=== PATIENT | male | born 1935 | race Caucasian/White ===

== ENCOUNTER 2019-07-04 07:58 | Inpatient (IN) ==
[2019-07-04] MEDS ORDERED: IOPAMIDOL 100 ML BOTTLE IV ONE (07:59)
[2019-07-04 08:19] LABS: POC Blood Urea Nitrogen 33 mg/dl (8-23); POC CO2 26 mmol/L (22-30); POC Calcium, Ionized 1.17 mmol/L (1.16-1.32); POC Chloride 106 mmol/L (96-108); POC Creatinine 1.4 mg/dl (0.7-1.2); POC Glucose, Random 125 mg/dL (70-105); POC Potassium 4.6 mmol/L (3.3-5.1); POC Sodium 140 mmol/L (133-145)
--- NOTE | 2019-07-04 08:20 | Emergency Department Note ---
Altered Mental Status HPI - General Chief Complaint: Altered Mental Status Stated Complaint: altered LOC Time Seen by Provider: 07/04/19 08:01 Source: patient Mode of arrival: ambulatory Limitations: no limitations - History of Present Illness HPI Narrative: 83-year-old male last seen normal 9 PM last night. Woke up this morning was confused. Went into the coat closet and close the door behind him. He was acting strange talking about having to repair a table in the kitchen. He is actually been falling more these last 9 months but no recent illness. No fever shortness of breath cough congestion. 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 He is saying some things are gibberish he is perseverating on certain words he is unable to follow commands-concerned about the possibility of a stroke - Related Data Home Medications Medication Instructions Recorded Confirmed methotrexate sodium 7.5 mg tablet 5 mg PO QWEEK tab 04/02/19 06/18/19 warfarin 5 mg tablet See Rx Instructions PO .COMPLEX 04/02/19 06/18/19 Allergies Allergy/AdvReac Type Severity Reaction Status Date / Time hydrochlorothiazide Allergy Unknown Unknown Verified 07/04/19 08:03 [From Hyzaar] losartan [From Hyzaar] Allergy Unknown Unknown Verified 07/04/19 08:03 Review of Systems All systems ED: reviewed and negative except as stated. Past Medical History - Past Medical History Attestation: Yes: The following information was validated with the patient. [facility] Narrative: Family History (Last Reviewed 04/02/19 @ 08:25 by Marino Smith MD, FAAFP) Mother Stroke Brother Lung cancer Diabetes Sister Diabetes Arthritis Hypertension Stroke Daughter Arthritis Migraine Father Arthritis Other Cancer Medical History (Last Updated 06/18/19 @ 22:12 by Олег Finnegan DO) Anticoagulated on warfarin (Chronic) Chronic renal insufficiency (Chronic) CVA (cerebral vascular accident) (Chronic) CAD (coronary artery disease) (Chronic) Diastolic heart failure (Chronic) Chronic renal disease, stage III (Chronic) Atrial fibrillation (Chronic ~2015) Mitral regurgitation (Chronic) Arthritis (Chronic ~1954) Acute prerenal failure (Resolved) Other acute reactions to stress (Chronic) Anxiety state, unspecified (Chronic) Intermittent vertigo (Chronic) BPH (benign prostatic hyperplasia) (Chronic) Hypertension, essential (Chronic ~1956) Low back pain (Chronic) Anemia (Chronic ~01/2018) History of tobacco use (Chronic) Urinary retention (Chronic) Cancer (Chronic ~01/2018) Anorexia (Resolved) Ganglion cyst (Resolved) Lethargy (Resolved) Petechiae or ecchymoses (Resolved) Pneumonia (Resolved) Unsteady gait (Resolved) Actinic keratosis (Inactive) Benign neoplasm of skin of trunk (Inactive) Dermatitis, seborrheic (Inactive) Hammertoe (Inactive) Hyperkeratosis (Inactive) Lentigo (Inactive) Metatarsalgia (Inactive) Myalgia (Inactive) Plantar flexed metatarsal (Inactive) Seborrheic keratosis (Inactive) Past Surgical History (Last Reviewed 04/02/19 @ 08:25 by Marino Smith MD, [facility]) H/O arthroscopic knee surgery (Chronic) H/O bilateral hip replacements (Chronic) H/O shoulder replacement (Chronic) History of ankle surgery (Chronic) History of carpal tunnel release (Chronic) History of colonoscopy (Chronic ~12/2017) History of coronary artery bypass graft x 3 (Chronic) History of herniorrhaphy (Chronic) History of left knee replacement (Chronic) History of surgery (Chronic) Hx of appendectomy (Chronic) Status post right foot surgery (Chronic) Medical history: Reports: atrial fibrillation, CAD (coronary artery disease), hypertension - Social History smoking status: Former smoker Alcohol use: Reports: None Drug use: Reports: none Physical Exam Thin male no acute distress resting comfortably. Normocephalic atraumatic. Conjunctive are clear sclerae white nonicteric. No nasal congestion or dischar ge. Oropharynx pink and moist. Tongue is midline. Neck is supple without lymphadenopathy thyromegaly or carotid bruit. Heart is regular rate and rhythm no murmur appreciated. Lungs are clear to auscultation bilaterally without wheezes rales rhonchi or respiratory distress. Abdomen is soft nontender nondistended. No pedal edema. He is alert and oriented to person but he cannot tell me that he is in the hospital. He has little difficulty saying his 's name but then he gets it on the second or third try. He cannot tell me what day it is today or the date but he does know that it is June. Cranial nerves II through XII are grossly intact. He does have some difficulty with finger-nose and rapid alternating movements particularly on the left side. Significant arthritic changes to his hands. Hip strength seems to be equal bilaterally and he can lift his legs against gravity. 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 Limitations: no limitations Course Vital Signs Pulse Rate 75 07/04/19 07:58 Respiratory Rate 18 07/04/19 07:58 Blood Pressure 166/110 07/04/19 07:58 Pulse Oximetry (%) 97 07/04/19 07:58 Pulse Rate 75 07/04/19 07:58 Respiratory Rate 18 07/04/19 07:58 Blood Pressure 166/110 07/04/19 07:58 Pulse Oximetry (%) 97 07/04/19 07:58 Altered Mental Status - Lab Data Lab results reviewed: Yes I reviewed the patient's lab results. Result diagrams: 07/04/19 08:14 07/04/19 08:14 Lab Results 07/04/19 Range/Units 08:14 POC Hct 41.0 (41.0-55.0) % POC Sodium 140 (133-145) mmol/L POC Potassium 4.6 (3.3-5.1) mmol/L POC Chloride 106 (96-108) mmol/L POC Total CO2 26 (22-30) mmol/L POC BUN 33 H (8-23) mg/dl POC Creatinine 1.4 H (0.7-1.2) mg/dl POC Glucose 125 H (70-105) mg/dL POC WB Ioniz Calcium 1.17 (1.16-1.32) mmol/L - Radiology Data Radiology results reviewed: Yes I reviewed the patient's radiology results. CT scan of the head with negative for acute stroke but old encephalomalacia is noted - EKG Data EKG attestation: Yes I reviewed and interpreted this EKG., Yes There are no EKG findings of acute coronary syndrome, Yes This EKG will be read by time study statistician EKG results narrative: EKG shows atrial fibrillation with a rate of 75. When compared to previous from November 2018 it does look like ST depression is more pronounced in the anterior le ads and he has a new right bundle branch block or partial in V1 and V2. Disposition Pt seen by RENAL CASE MANAGER/PA only: No Summary: Concern for CVA but he is on Coumadin. Laboratory and CT scan are ordered. EKG is unrevealing with atrial fibrillation. He does have significant deficit with some confusion and orientation deficits. Work-up ordered NIH in progress. Hydralazine ordered for markedly elevated blood pressure Initial CT scan was negative for acute stroke. CTA ordered of head and neck Patient will be handed off to Dr. Finnegan at shift change Disposition: Still a Patient Condition: Serious Referrals: Marino Smith MD, FAAFP [Primary Care Provider] -
--- NOTE | 2019-07-04 08:27 | Cat Scan Report ---
CLINICAL INFORMATION: Fall. Patient is anticoagulated COMPARISON: Previous CT scan dated 03/09/2019 TECHNIQUE: Axial noncontrast-enhanced images through the brain. Sagittally and coronally reformatted images. FINDINGS: No acute intracranial hemorrhage. There is no subdural hematoma. No subarachnoid hemorrhage. Basilar cisterns are negative. No intra-axial hemorrhage. No acute intra-axial attenuation abnormality or localized mass effect. There is right parietal encephalomalacia, unchanged. White matter abnormality consistent with small vessel ischemic change in this 83-year-old patient. There is cerebral atrophy. There is left cerebellar encephalomalacia consistent with old infarction. No acute cerebellar or brainstem abnormality. No calvarial fracture. Temporal bones are negative IMPRESSION: 1. No acute intracranial hemorrhage. 2. Right posterior parietal and left cerebellar encephalomalacia consistent with old infarction 3. No acute abnormality. No interval change since 03/09/2019 The exam was performed using radiation dose optimization techniques including, but not limited to, automated exposure control, adjustment of the mA and/or kV according to patient size and use of iterative reconstruction technique. Interpreted and Authenticated by: Ulises Mike 07/04/19
[2019-07-04] MEDS ORDERED: hydrALAZINE 20 MG/ML VIAL IV ONE (08:35)
[2019-07-04 08:43] LABS: POC INR 1.9 (0.9-1.2); POC Pro Time 21.7 sec (11.9-14.5)
[2019-07-04 08:55] LABS: Basophils # (Auto) 0 K/mcL (0.0-0.3); Basophils % (Auto) 0.1 % (0.0-2.0); Eosinophils # (Auto) 0 K/mcL (0.0-0.7); Eosinophils % (Auto) 0.2 % (0.0-7.0); Granulocytes % (Auto) 80.5 % (38.0-78.0); Hematocrit 40.9 % (41.0-55.0); Hemoglobin 13.6 g/dL (13.5-16.5); Lymphocytes # (Auto) 0.7 K/mcL (1.5-4.8); Lymphocytes % (Auto) 12.5 % (15.5-49.0); Mean Cell Volume 90.4 fL (80.0-100.0); Mean Corpuscular HGB Conc 33.2 g/dL (31.0-36.0); Mean Platelet Volume 9.9 fL (7.4-10.4); Monocytes # (Auto) 0.4 K/mcL (0.1-0.9); Monocytes % (Auto) 6.7 % (1.0-12.0); Platelet Count 139 K/mcL (140-440); RBC 4.52 M/mcL (4.50-5.90); Red Cell Distribution Width 15.2 % (11.5-14.5); WBC 5.3 K/mcL (4.5-11.0)
--- NOTE | 2019-07-04 09:20 | Cat Scan Report ---
CLINICAL INFORMATION: Code stroke TECHNIQUE: Axial images through the chest, neck, head. Sagittal and coronal reformatted images. CPR reformatted images. 90 mL contrast material injected COMPARISON: Noncontrast enhanced brain CT scan dated 07/04/2019 FINDINGS: There is extensive atherosclerotic calcification. There is atherosclerotic calcification at the origins of the left subclavian artery, left common carotid artery, innominate artery. No hemodynamically significant stenosis. There is calcification at the origin of both vertebral arteries. Stenosis is possible. Vertebral arteries are patent. There is calcified plaque in the distal common carotid artery and proximal internal carotid artery bilaterally. There is no ulcerated plaque. No hemodynamically significant stenosis. Cervical internal carotid arteries are negative. No stenosis. No dissection or evidence for fibromuscular dysplasia. Petrous portions of both internal carotid arteries are patent. There is extensive calcification of the cavernous and supraclinoid segments of both internal carotid arteries. Stenosis of the cavernous segments of the internal carotid arteries is possible although not definite. Supraclinoid segments are negative. No stenosis. M1 segments of the middle cerebral arteries and A1 segments of the anterior cerebral arteries are negative. There is no stenosis or occlusion. Detectable occluded branch. Cervical vertebral arteries are patent without obstruction or stenosis. Intracranial vertebral arteries are normal. Basilar artery is negative. No stenosis or occlusion. T1 segments and posterior cerebral arteries are negative. No intracranial aneurysm or arteriovenous malformation. No detectable intracranial branch occlusion. Dural sinuses are patent Lung apices are negative. No parenchymal mass. No solid or cystic soft tissue mass within the neck. There is multilevel degenerative disc disease within the cervical spine IMPRESSION: 1. Extensive calcified atherosclerotic plaque. 2. Stenoses within the cavernous segments of the internal carotid arteries are possible. There is no occlusion. Normal opacification of the supraclinoid segments of the internal carotid arteries bilaterally 3. Anterior and middle cerebral arteries are negative. No stenosis or occlusion. 4. Intracranial vertebral arteries, basilar artery, posterior cerebral arteries are negative. Interpreted and Authenticated by: Ulises Mike 07/04/19
[2019-07-04 10:29] LABS: ALT/SGPT 18 U/l (0-40); AST/SGOT 29 U/l (0-37); Albumin 4.1 gm/dL (3.2-5.2); Albumin/Globulin Ratio 1.2 (1.0-2.3); Alkaline Phosphatase 58 U/L (39-117); Bilirubin,Total 0.7 mg/dL (0.0-1.0); Blood Urea Nitrogen 24 mg/dl (8-23); Calcium 9.6 mg/dl (8.6-10.4); Carbon Dioxide 21 mmol/L (22-30); Chloride 100 mmol/L (96-108); Globulin 3.4 gm/dL (2.2-3.7); Glomerular Filtration Rate 50; Glucose 101 mg/dL (70-105)
--- NOTE | 2019-07-04 11:06 | Internal Med History&Physical ---
Medical - H&P: HPI Patient information: Note initiated : 07/04/19 at 10:56 am Service Date, if different from initiated Date: [] Patient: Luis Alfredo Contreras 83 y/o M admitted on for Altered LOC. Chief Complaint: [] Chief complaint: Slurred speech/right-sided weakness History of present illness: Mr. Contreras is a 83 year old right-handed M who presents to the ER after he was found by his family this morning confused unable to express himself and wobbly. Despite concerning symptoms patient refused to go to the ER however he fell between his bed and the dresser wedged in but fortunate enough not to sustain significant injuries. He was thereafter brought to the ER and code stroke was initiated. Dr. Hale neurologist was consulted after CT angiogram head neck/CT head was performed. Initial NIH score 7. Stroke neurology recommended continuing Coumadin/aspirin. Patient is sub-therapeutic at 1.9. He denies associated vision loss/seizure but endorses to headache that started this morning throbbing in nature. He denies tearing neck pain or chest palpitation or shortness of breath. He is recovering from a recent URI. He denies changes in medications or taking NSAIDs Following initial treatment hospitalist service consulted for evaluation and admission At the time evaluation patient is accompanied with his daughter and . He is able to answer some of the questions. Most of history was obtained from review of medical records/ER physician and patient's . He endorses to history as above. He denies chest pain, fever, diarrhea, dysuria, weight loss. On his normal baseline he is fairly functional driving and able to fix meals and lives with his fairly independently. He has not had prior stroke or cardiac surgeries. Review of systems 10 point review system was performed and is negative for ones cussed above Medical - H&P: PMH Medical history: Arthritis (Chronic ~1955) Chronic renal disease, stage III (Chronic) Left wrist pain (Chronic) Lentigo (Chronic) Benign Benign neoplasm of skin of trunk (Chronic) Seborrheic keratosis (Chronic) Dermatitis, seborrheic (Chronic) Hemangioma of skin (Chronic) Ganglion cyst (Chronic) Left wrist Other acute reactions to stress (Chronic) Anxiety state, unspecified (Chronic) CAD (coronary artery disease) (Chronic) Actinic keratosis (Chronic) Intermittent vertigo (Chronic) Lethargy (Chronic) BPH (benign prostatic hyperplasia) (Chronic) Hypertension, essential (Chronic ~195) Chronic renal insufficiency (Chronic) Atrial fibrillation (Chronic ~2015) Anticoagulated on warfarin (Chronic) Low back pain (Chronic) Anemia (Chronic ~01/2018) Myalgia (Chronic) CVA (cerebral vascular accident) (Chronic) Metatarsalgia (Chronic) Plantar flexed metatarsal (Chronic) Hammertoe (Chronic) Hyperkeratosis (Chronic) History of tobacco use (Chronic) Retention of urine (Chronic) Acute bronchitis (Acute) Cancer (Chronic ~01/2018) T-cell Surgical History H/O arthroscopic knee surgery (Chronic) x3 H/O bilateral hip replacements (Chronic) H/O shoulder replacement (Chronic) Right shoulder History of ankle surgery (Chronic) right History of carpal tunnel release (Chronic) History of colonoscopy (Chronic ~12/2017) History of coronary artery bypass graft x 3 (Chronic) History of herniorrhaphy (Chronic) x2 History of left knee replacement (Chronic) History of surgery (Chronic) 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 Hx of appendectomy (Chronic) Status post right foot surgery (Chronic) Family History Mother Stroke Brother Lung cancer Diabetes Sister Diabetes Arthritis Hypertension Stroke Daughter Arthritis Migraine Father Arthritis Other Cancer Social History marital status: occupational status: retired physical activity: none smoking status: Former smoker alcohol intake frequency: does not drink substance use type: does not use Medical - H&P: Meds Home Medications Medication Instructions Recorded Confirmed Type methotrexate sodium 7.5 mg tablet 5 mg PO QWEEK tab 04/02/19 07/04/19 History warfarin 5 mg tablet See Rx Instructions PO .COMPLEX 04/02/19 07/04/19 History Allergies Allergy/AdvReac Type Severity Reaction Status Date / Time hydrochlorothiazide Allergy Unknown Unknown Verified 07/04/19 08:03 [From Hyzaar] losartan [From Hyzaar] Allergy Unknown Unknown Verified 07/04/19 08:03 Medical - H&P: Exam - Constitutional Vitals: Temp Pulse Resp BP Pulse Ox 99.7 F H 80 20 177/75 98 07/04/19 10:01 07/04/19 10:48 07/04/19 10:48 07/04/19 10:48 07/04/19 10:48 General appearance: no acute distress Exam: Alert and respond to commands Oriented to time and person, he knew is in [address] but thinks he is at [facility] Head normocephalic Oral cavity dry Monocular vision with 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 No ear nose discharge No facial asymmetry Neck no lymphadenopathy or bruit S1-S2 regular rhythm ESM grade 1 Diminished breath sounds bases Abdomen soft nontender nondistended bruit noted epigastric area Lower extremity no sinus clubbing no joint swelling Skin no suspicious lesion Psych alert cooperative Neuro-symmetrical strength sensation upper and lower extremity No cranial nerve deficit Minimal expressive aphasia Symmetrical tone Medical - H&P: Reslt - Labs CBC & Chem 7: 07/04/19 08:14 07/04/19 09:36 Labs: Short CBC 07/04/19 Range/Units 08:14 WBC 5.3 (4.5-11.0) K/mcL Hgb 13.6 (13.5-16.5) g/dL Hct 40.9 L (41.0-55.0) % Plt Count 139 L (140-440) K/mcL BMP 07/04/19 07/04/19 08:14 09:36 Sodium TNP 135 Potassium TNP 5.0 Chloride TNP 100 Carbon Dioxide TNP 21 L BUN TNP 24 H Creatinine TNP 1.3 H Glucose TNP 101 Calcium TNP 9.6 Cardiac Enzymes 07/04/19 07/04/19 Range/Units 08:14 09:36 Troponin T TNP < 0.01 Liver Function 07/04/19 07/04/19 Range/Units 08:14 09:36 Total Bilirubin TNP 0.7 AST TNP 29 ALT TNP 18 Alkaline Phosphatase TNP 58 Albumin TNP 4.1 Medical - H&P: A/P (1) Acute cerebrovascular accident (CVA) Current visit: Yes Status: Acute * Acute ischemic CVA likely involving left hemisphere MCA territory with expressive aphasia-underlying A. fib but anticoagulated with INR 1.9. Negative CT angiogram head neck. Await brain MRI. Echo with bubble study pratik max. Continue anticoagulation on Coumadin/aspirin 81 as per stroke neurologist Dr. Hale's recommendations. Continue permissive hypertension but maintain systolics around 170-180. Use nicardipine as needed * Atrial fibrillation rate controlled. * Anticoagulation on Coumadin * Full code Plan * Inpatient admission, Anticipate minimum 2 midnight hospitalization * Stroke management per protocol. * Prior medical condition management home meds * Optimize blood pressure around 170-180 * Continue Coumadin/aspirin as per stroke neurologist * PT OT/aggressive post stroke rehab * Case management coordinate discharge plan
--- NOTE | 2019-07-04 11:19 | Emergency Department Note ---
Altered Mental Status HPI - General Chief Complaint: Altered Mental Status Stated Complaint: altered LOC Time Seen by Provider: 07/04/19 08:01 Source: patient Mode of arrival: ambulatory Limitations: no limitations - History of Present Illness HPI Narrative: I am following up on this patient after change in shift. Family clarifies that at 6 AM is when he first got up and his conversation was very difficult to follow or track and at times totally not making much sense. He acted confused. He stumbled with walking and was wobbly. He even fell with a small laceration to his right elbow. reports that he was up during the night several times which is not unusual for him. However he seemed to bump into several things. He went to bed around 9 PM. This morning he seemed to be tearing things apart as if you were trying to fix or do something with him. He had some food and he started eating it with his fingers instead of with silverware which was very unusual for him. - Related Data Home Medications Medication Instructions Recorded Confirmed methotrexate sodium 7.5 mg tablet 5 mg PO QWEEK tab 04/02/19 06/18/19 warfarin 5 mg tablet See Rx Instructions PO .COMPLEX 04/02/19 06/18/19 Allergies Allergy/AdvReac Type Severity Reaction Status Date / Time hydrochlorothiazide Allergy Unknown Unknown Verified 07/04/19 08:03 [From Hyzaar] losartan [From Hyzaar] Allergy Unknown Unknown Verified 07/04/19 08:03 Past Medical History - Past Medical History Medical history: Reports: atrial fibrillation, CAD (coronary artery disease), hypertension Surgical history ED: Reports: non-contributory - Social History smoking status: Former smoker Alcohol use: Reports: None Drug use: Reports: none Physical Exam On my brief exam he is unremarkable as far as no distress or toxic appearance. His speech includes occasional words that are garbled or nonsensical. He is able to follow most commands but he was unable to use his left upper extremity/hand to touch my finger on command. There were no focal deficits except for may be mild decrease in strength in pushing me away with the right upper extremity. Nursing observed that he has been wincing and holding his head a little bit. Blood pressures have been elevated. He was given hydralazine in the emergency room 10 mg and this brought his blood pressures down to 180 185. Limitations: no limitations Course Vital Signs Pulse Rate 75 07/04/19 07:58 Respiratory Rate 18 07/04/19 07:58 Blood Pressure 166/110 07/04/19 07:58 Pulse Oximetry (%) 97 07/04/19 07:58 Temperature 99.7 F H 07/04/19 10:01 Pulse Rate 80 07/04/19 10:48 Respiratory Rate 20 07/04/19 10:48 Blood Pressure 177/75 07/04/19 10:48 Pulse Oximetry (%) 98 07/04/19 10:48 Altered Mental Status - MDM Narrative Medical decision making narrative: 9:54 AM - spoke with Dr. Hale, stroke neurologist, who agrees that there is limited intervention usefulness with any procedure, thrombectomy, TPA, etc. He is outside the window of therapy benefit. Follow-up with the finishing the stroke protocol with MRI and because of patient's ambulatory difficulties he may need further rehab to be able to return home and for communication if this persist. If patient worsens there is no specific intervention that will be of greater benefit or help. 10:53 AM - I spoke with Dr. Burton who wonders if, and asked me to contact Dr. Hale again, if we should change off warfarin or use combination therapy. He recommends also nicardipine drip to keep the blood pressures under 180. He is willing to accept patient under hospital care. 11:21 AM - patient was observed to get up and go to the bathroom and it seemed that his speech was almost completely garbled at this time. 11:50 AM - I spoke with Dr. Hale, stroke neurologist, who said that we could add aspirin in combination considering that his warfarin may have dipped below therapy and may have been a contributor circumstance or lack of benefit available. There is no strong evidence 1 way or another for this. He recommends that the blood pressure just be below 180 but not push it much lower than 170s. The nicardipine drip was stopped as his blood pressures have now gone down to upper 150s and 160s. 81 mg of aspirin ordered in the meantime. - Lab Data Result diagrams: 07/04/19 08:14 07/04/19 09:36 Lab Results 07/04/19 07/04/19 07/04/19 Range/Units 08:14 08:14 08:14 WBC 5.3 (4.5-11.0) K/mcL RBC 4.52 (4.50-5.90) M/mcL Hgb 13.6 (13.5-16.5) g/dL Hct 40.9 L (41.0-55.0) % POC Hct 41.0 (41.0-55.0) % MCV 90.4 (80.0-100.0) fL MCH 30.0 (26.0-34.0) pg MCHC 33.2 (31.0-36.0) g/dL RDW 15.2 H (11.5-14.5) % Plt Count 139 L (140-440) K/mcL MPV 9.9 (7.4-10.4) fL Gran % 80.5 H (38.0-78.0) % Lymph % (Auto) 12.5 L (15.5-49.0) % Imperial % (Auto) 6.7 (1.0-12.0) % Eos % (Auto) 0.2 (0.0-7.0) % Baso % (Auto) 0.1 (0.0-2.0) % Gran # 4.3 (1.8-8.0) K/mcL Lymph # (Auto) 0.7 L (1.5-4.8) K/mcL Imperial # (Auto) 0.4 (0.1-0.9) K/mcL Eos # (Auto) 0 (0.0-0.7) K/mcL Baso # (Auto) 0 (0.0-0.3) K/mcL POC PT 21.7 H (11.9-14.5) sec POC INR 1.9 H (0.9-1.2) APTT 42 H (20-37) sec VBG Lactic Acid (0.5-2.0) mmol/L POC Sodium 140 (133-145) mmol/L Sodium TNP POC Potassium 4.6 (3.3-5.1) mmol/L Potassium TNP POC Chloride 106 (96-108) mmol/L Chloride TNP Carbon Dioxide TNP POC Total CO2 26 (22-30) mmol/L Anion Gap TNP POC BUN 33 H (8-23) mg/dl BUN TNP Creatinine TNP POC Creatinine 1.4 H (0.7-1.2) mg/dl GFR Calculation Not Reportable Glucose TNP POC Glucose 125 H (70-105) mg/dL Calcium TNP POC WB Ioniz Calcium 1.17 (1.16-1.32) mmol/L Total Bilirubin TNP AST TNP ALT TNP Alkaline Phosphatase TNP Ammonia (16-60) umol/L Troponin T Total Protein TNP Albumin TNP Globulin TNP Albumin/Globulin Ratio TNP 07/04/19 07/04/19 07/04/19 Range/Units 08:14 08:40 08:40 WBC (4.5-11.0) K/mcL RBC (4.50-5.90) M/mcL Hgb (13.5-16.5) g/dL Hct (41.0-55.0) % POC Hct (41.0-55.0) % MCV (80.0-100.0) fL MCH (26.0-34.0) pg MCHC (31.0-36.0) g/dL RDW (11.5-14.5) % Plt Count (140-440) K/mcL MPV (7.4-10.4) fL Gran % (38.0-78.0) % Lymph % (Auto) (15.5-49.0) % Imperial % (Auto) (1.0-12.0) % Eos % (Auto) (0.0-7.0) % Baso % (Auto) (0.0-2.0) % Gran # (1.8-8.0) K/mcL Lymph # (Auto) (1.5-4.8) K/mcL Imperial # (Auto) (0.1-0.9) K/mcL Eos # (Auto) (0.0-0.7) K/mcL Baso # (Auto) (0.0-0.3) K/mcL POC PT (11.9-14.5) sec POC INR (0.9-1.2) APTT (20-37) sec VBG Lactic Acid 1.0 (0.5-2.0) mmol/L POC Sodium (133-145) mmol/L Sodium POC Potassium (3.3-5.1) mmol/L Potassium POC Chloride (96-108) mmol/L Chloride Carbon Dioxide POC Total CO2 (22-30) mmol/L Anion Gap POC BUN (8-23) mg/dl BUN Creatinine POC Creatinine (0.7-1.2) mg/dl GFR Calculation Glucose POC Glucose (70-105) mg/dL Calcium POC WB Ioniz Calcium (1.16-1.32) mmol/L Total Bilirubin AST ALT Alkaline Phosphatase Ammonia 10 L (16-60) umol/L Troponin T TNP Total Protein Albumin Globulin Albumin/Globulin Ratio 07/04/19 07/04/19 Range/Units 09:36 09:36 WBC (4.5-11.0) K/mcL RBC (4.50-5.90) M/mcL Hgb (13.5-16.5) g/dL Hct (41.0-55.0) % POC Hct (41.0-55.0) % MCV (80.0-100.0) fL MCH (26.0-34.0) pg MCHC (31.0-36.0) g/dL RDW (11.5-14.5) % Plt Count (140-440) K/mcL MPV (7.4-10.4) fL Gran % (38.0-78.0) % Lymph % (Auto) (15.5-49.0) % Imperial % (Auto) (1.0-12.0) % Eos % (Auto) (0.0-7.0) % Baso % (Auto) (0.0-2.0) % Gran # (1.8-8.0) K/mcL Lymph # (Auto) (1.5-4.8) K/mcL Imperial # (Auto) (0.1-0.9) K/mcL Eos # (Auto) (0.0-0.7) K/mcL Baso # (Auto) (0.0-0.3) K/mcL POC PT (11.9-14.5) sec POC INR (0.9-1.2) APTT (20-37) sec VBG Lactic Acid (0.5-2.0) mmol/L POC Sodium (133-145) mmol/L Sodium 135 POC Potassium (3.3-5.1) mmol/L Potassium 5.0 POC Chloride (96-108) mmol/L Chloride 100 Carbon Dioxide 21 L POC Total CO2 (22-30) mmol/L Anion Gap 14.0 POC BUN (8-23) mg/dl BUN 24 H Creatinine 1.3 H POC Creatinine (0.7-1.2) mg/dl GFR Calculation 50 Glucose 101 POC Glucose (70-105) mg/dL Calcium 9.6 POC WB Ioniz Calcium (1.16-1.32) mmol/L Total Bilirubin 0.7 AST 29 ALT 18 Alkaline Phosphatase 58 Ammonia (16-60) umol/L Troponin T < 0.01 Total Protein 7.5 Albumin 4.1 Globulin 3.4 Albumin/Globulin Ratio 1.2 Disposition Pt seen by [facility]/PA only: No Clinical Impression: Difficulty with speech, Unsteady gait CVA (cerebral vascular accident) Qualifiers: CVA mechanism: other Qualified Code(s): I63.89 - Other cerebral infarction Fall Qualifiers: Encounter type: initial encounter Qualified Code(s): W19.XXXA - Unspecified fall, initial encounter Laceration of elbow, right Qualifiers: Encounter type: initial encounter Qualified Code(s): S51.011A - Laceration without foreign body of right elbow, initial encounter Disposition: Xfer As Outpt/Obs ([facility]) Condition: Fair Referrals: Marino Smith MD, FAAFP [Primary Care Provider] -
[2019-07-04] MEDS: niCARdipine 25 MG in 0.9 % SODIUM CHLORIDE 240 ML IV SCH (11:31)
[2019-07-04] MEDS ORDERED: ASPIRIN 81 MG TAB.CHEW CHEWED ONE (11:56)
[2019-07-04 12:07] LABS: Appearance,Urine CLEAR; Bacteria,Urine 0 /hpf (0); Bilirubin,Urine NEG (NEG); Color,Urine STRAW; Culture Indicated,Urine YES; Glucose,Urine (UA) NEGATIVE (NEG); Ketones,Urine 5/TR mg/dL (NEG); Leukocyte Esterase,Urine 25 /uL (NEG); Mucus,Urine FEW /hpf (0); Nitrate,Urine NEG (NEG); Protein,Urine 100 mg/dL (NEG); Specific Gravity,Urine 1.032 (1.000-1.035); Urine Blood 0.03 mg/dL (<0.03); Urine Hyaline Cast 6 /lpf (0-2); Urine RBC 7 /hpf (0-1); Urine Squamous Epithelial Cell 1 /hpf (0-4); Urine WBC 19 /hpf (0-4); Urobilinogen,Urine NEG (NEG)
[2019-07-04] MEDS ORDERED: BISACODYL 10 MG SUPP.RECT PR PRN (12:57)
[2019-07-04] MEDS ORDERED: POLYETHYLENE GLYCOL 3350 17 GM PACKET PO PRN (12:57)
[2019-07-04] MEDS ORDERED: ONDANSETRON 4 MG ODT TABLET SL PRN (12:57)
[2019-07-04] MEDS ORDERED: ONDANSETRON 4 MG/2 ML VIAL IV PRN (12:57)
[2019-07-04] MEDS ORDERED: POTASSIUM CHLORIDE 20 MEQ PACKET PO PRN (12:57)
[2019-07-04] MEDS ORDERED: ACETAMINOPHEN 325 MG TABLET PO PRN (12:57)
[2019-07-04] MEDS ORDERED: MAGNESIUM SULFATE 2 GM/50 ML BAG IV PRN (12:57)
[2019-07-04] MEDS: 0.9 % SODIUM CHLORIDE 10 ML SYRINGE IV SCH ×2 (14:00→21:02)
[2019-07-04] MEDS: 0.9 % SODIUM CHLORIDE 1,000 ML IV SCH (14:01)
[2019-07-04] MEDS ORDERED: LORazepam 2 MG/ML VIAL IV STA (14:21)
--- NOTE | 2019-07-04 15:42 | Magnetic Resonance Report ---
CLINICAL INFORMATION: Altered level of consciousness. Possible stroke TECHNIQUE: Limited MRI scan. Axial diffusion weighted images. Sagittal T1-weighted images COMPARISON: Previous brain CT scan dated 07/04/2019. Previous neck and head CTA dated 07/04/2019 FINDINGS: Present examination is limited and of suboptimal quality due to patient motion. There is no restricted diffusion. No acute infarction identified. Cerebral hemispheres, brainstem, cerebellum or negative. IMPRESSION: Limited evaluation. No restricted diffusion. No detectable acute infarction Interpreted and Authenticated by: Ulises Mike 07/04/19
[2019-07-04] MEDS: ACETAMINOPHEN 650 MG/65 ML BOTTLE IV PRN (19:05)
[2019-07-04] MEDS: OLANZapine 10 MG VIAL IM PRN ×2 (19:40→23:31)
[2019-07-04] MEDS: SENNOSIDES/DOCUSATE SODIUM 1 TAB TABLET PO SCH (20:59)
[2019-07-04] MEDS: DOCUSATE SODIUM 100 MG CAPSULE PO SCH (20:59)
[2019-07-04] MEDS: CYANOCOBALAMIN (VITAMIN B-12) 500 MCG TABLET PO SCH (20:59)
[2019-07-04] MEDS ORDERED: MELATONIN 3 MG TABLET PO PRN (21:00)
[2019-07-04] MEDS: HEPARIN 5,000 UNIT/ML VIAL SQ SCH (21:02)
[2019-07-05] MEDS: ACETAMINOPHEN 650 MG/65 ML BOTTLE IV PRN ×2 (02:27→19:40)
[2019-07-05] MEDS: OLANZapine 10 MG VIAL IM PRN (03:39)
[2019-07-05] MEDS: 0.9 % SODIUM CHLORIDE 10 ML SYRINGE IV SCH ×3 (05:38→21:05)
[2019-07-05 06:22] LABS: Hematocrit 34.7 % (41.0-55.0); Hemoglobin 11.5 g/dL (13.5-16.5); Mean Cell Volume 91.4 fL (80.0-100.0); Mean Corpuscular HGB Conc 33.3 g/dL (31.0-36.0); Mean Platelet Volume 9.8 fL (7.4-10.4); Platelet Count 116 K/mcL (140-440); RBC 3.79 M/mcL (4.50-5.90); Red Cell Distribution Width 14.9 % (11.5-14.5); WBC 4.5 K/mcL (4.5-11.0)
[2019-07-05 06:38] LABS: ALT/SGPT 13 U/l (0-40); AST/SGOT 19 U/l (0-37); Albumin/Globulin Ratio 1.4 (1.0-2.3); Alkaline Phosphatase 57 U/L (39-117); Bilirubin,Direct 0.2 mg/dL (0.0-0.3); Blood Urea Nitrogen 20 mg/dl (8-23); Calcium 9.5 mg/dl (8.6-10.4); Carbon Dioxide 21 mmol/L (22-30); Chloride 104 mmol/L (96-108); Globulin 2.9 gm/dL (2.2-3.7); Glomerular Filtration Rate 50; Glucose 99 mg/dL (70-105); Lactate Dehydrogenase 212 U/L (94-250); Phosphorous 2.9 mg/dL (2.7-4.5); Triglycerides 55 mg/dl (<150); Uric Acid 5.2 mg/dL (2.5-8.0)
[2019-07-05] MEDS ORDERED: FLUMAZENIL 0.1 MG/ML ML IV ONE (07:28)
[2019-07-05 07:37] LABS: Band Neutrophils % 2 % (0-10); Lymphocytes % 9 % (15-49); Monocytes % (Manual) 14 % (1-12); Platelet Estimate DECREASED (NORMAL); RBC Morphology NORMAL (NORMAL); Segmented Neutrophils % 75 % (38-78)
[2019-07-05] MEDS ORDERED: MULTIVIT,THER IRON,CA,FA & MIN 1 TABLET PO SCH (09:00)
[2019-07-05] MEDS ORDERED: FOLIC ACID 1 MG TABLET PO SCH (09:00)
[2019-07-05] MEDS ORDERED: THIAMINE 100 MG TABLET PO SCH (09:00)
--- NOTE | 2019-07-05 09:35 | Internal Med Progress Note ---
Medical - PN: Subj Patient information: Note initiated : 07/05/19 at 9:30 am Service Date, if different from initiated Date: [] Patient: Luis Alfredo Contreras 83 y/o M admitted on 07/04/19 for Altered LOC. Chief Complaint: [] Interval history: Mr. Contreras is a 83 year old right-handed M who presents to the ER after he was f ound by his family this morning confused unable to express himself and wobbly. Despite concerning symptoms patient refused to go to the ER however he fell between his bed and the dresser wedged in but fortunate enough not to sustain significant injuries. He was thereafter brought to the ER and code stroke was initiated. Dr. Hale neurologist was consulted after CT angiogram head neck/CT head was performed. Initial NIH score 7. Stroke neurologist recommended continuing Coumadin/aspirin. Patient is sub- therapeutic at 1.9. He denies associated vision loss/seizure but endorses to headache that started this morning throbbing in nature. He denies tearing neck pain or chest palpitation or shortness of breath. He is recovering from a recent URI. He denies changes in medications or taking NSAIDs Following initial treatment hospitalist service consulted for evaluation and admission At the time evaluation patient is accompanied with his daughter and . He is able to answer some of the questions. Most of history was obtained from review of medical records/ER physician and patient's . He endorses to history as above. He denies chest pain, fever, diarrhea, dysuria, weight loss. On his normal baseline he is fairly functional driving and able to fix meals and lives with his fairly independently. He has not had prior stroke or cardiac surgeries. 07/05-MRI no evidence of acute stroke. Patient however remains confused and delirious exacerbated after administration of benzodiazepine during MRI. Currently on Zyprexa. Continue bright lights/avoid sedative-hypnotics. Overnight urinary retention requiring Orr's catheter. Blood-tinged urine noted this morning. at bedside. No telemetry events. Atrial fibrillation. INR 1.9. Stable hemodynamics. Anticipate discharge in 24 hours - Constitutional Vitals: Vital Signs Temp Pulse Resp BP Pulse Ox 100.3 F H 71 20 137/116 92 07/05/19 07:01 07/04/19 12:42 07/05/19 07:01 07/05/19 07:01 07/05/19 07:01 Period Temp Pulse Resp BP Sys/Reno Pulse Ox Last 24 Hr 98.9 F-101.0 F 64-88 12-39 129-213/55-158 89-100 Intake and Output 07/04/19 07/05/19 07/05/19 21:59 05:59 13:59 Intake Total 65 65 Output Total 325 700 100 Balance -260 -635 -100 Weight 145 lb 14.4 oz Intake & Output: Intake & Output 07/04/19 07/05/19 07/05/19 21:59 05:59 13:59 Intake Total 65 65 Output Total 325 700 100 Balance -260 -635 -100 Weight 145 lb 14.4 oz Intake: IV 65 65 Output: Urine Catheter Amount 700 100 Void Amount 325 Other: Urine Appearance Clear Clear Hematuria Uretheral (Orr) Clear Urine Color Bright Yellow Light Teresa Dark Red Blood Tinged Uretheral (Orr) [place]eter Urine Odor Normal General appearance: no acute distress Exam: Psychomotor agitation Nonlabored breathing Orr is draining bloody urine No telemetry events except for A. fib Medical - PN: Obj Da - Labs CBC & Chem 7: 07/05/19 03:50 07/05/19 03:50 Labs: Abnormal Lab Results 07/05/19 07/05/19 07/04/19 03:50 03:50 11:46 RBC 3.79 L Hgb 11.5 L Hct 34.7 L RDW 14.9 H Plt Count 116 L Gran % Lymph % (Auto) Lymph # (Auto) Lymphocytes % 9 L Monocytes % (Manual) 14 H Platelet Estimate Decreased A POC PT POC INR APTT Carbon Dioxide 21 L POC BUN BUN Creatinine 1.3 H POC Creatinine POC Glucose Ammonia Urine Protein 100 A Urine Ketones 5/tr A Urine Occult Blood 0.03 A Ur Leukocyte Esterase 25 A Urine RBC 7 H Urine WBC 19 H Hyaline Casts 6 H 07/04/19 07/04/19 07/04/19 09:36 08:40 08:14 RBC Hgb Hct RDW Plt Count Gran % Lymph % (Auto) Lymph # (Auto) Lymphocytes % Monocytes % (Manual) Platelet Estimate POC PT POC INR APTT Carbon Dioxide 21 L POC BUN 33 H BUN 24 H Creatinine 1.3 H POC Creatinine 1.4 H POC Glucose 125 H Ammonia 10 L Urine Protein Urine Ketones Urine Occult Blood Ur Leukocyte Esterase Urine RBC Urine WBC Hyaline Casts 07/04/19 07/04/19 08:14 08:14 RBC Hgb Hct 40.9 L RDW 15.2 H Plt Count 139 L Gran % 80.5 H Lymph % (Auto) 12.5 L Lymph # (Auto) 0.7 L Lymphocytes % Monocytes % (Manual) Platelet Estimate POC PT 21.7 H POC INR 1.9 H APTT 42 H Carbon Dioxide POC BUN BUN Creatinine POC Creatinine POC Glucose Ammonia Urine Protein Urine Ketones Urine Occult Blood Ur Leukocyte Esterase Urine RBC Urine WBC Hyaline Casts Meds: Medications Acetaminophen (Tylenol) 650 mg PO Q4-6HP PRN; Protocol PRN Reason: Per Pain Protocol/Fever > 101 Bisacodyl (Dulcolax) [address] Q2-3DAYS PRN PRN Reason: Constipation Cyanocobalamin (Vitamin B-12) 1,000 mcg PO BID [facility] Stop: 07/09/19 09:01 Last Admin: 07/04/19 20:59 Dose: Not Given Documented by: Docusate Sodium (Colace) 100 mg PO BID [facility] Last Admin: 07/04/19 20:59 Dose: Not Given Documented by: Folic Acid (Folic Acid) 1 mg PO DAILY [facility] Heparin Sodium (Porcine) (Heparin) 5,000 unit SQ Q12 [facility] Last Admin: 07/04/19 21:02 Dose: 5,000 unit Documented by: Nicardipine HCl 25 mg/ Sodium (Chloride) 250 mls @ 50 mls/hr IV ONCE [facility]; Protocol Last Titration: 07/04/19 11:58 Dose: 0 mg/hr, 0 mls/hr Documented by: Sodium Chloride (Sodium Chloride 0.9%) 1,000 mls @ 50 mls/hr IV .Q20H [facility] Stop: 07/07/19 00:56 Last Admin: 07/04/19 14:01 Dose: 50 mls/hr Documented by: Acetaminophen (Ofirmev) 650 mg in 65 mls @ 130 mls/hr IV Q6HP PRN; Protocol PRN Reason: Per Pain Protocol/Fever > 101 Last Infusion: 07/05/19 03:00 Dose: Infused Documented by: Magnesium Sulfate (Magnesium Sulfate) 2 gm in 50 mls @ 50 mls/hr IV UD PRN PRN Reason: MG = or < 1.7 Iron Carb/Multivit/Site Foreman/Folic Acid (Multivitamin W/Minerals) 1 tab PO DAILY [facility] Melatonin (Melatonin 3mg Tablet) 3 mg PO HSP PRN PRN Reason: Insomnia Olanzapine (Zyprexa) 5 mg IM Q4HP PRN PRN Reason: Agitation Last Admin: 07/05/19 03:39 Dose: 5 mg Documented by: Ondansetron HCl (Zofran Odt) 4 mg SL Q4-6HP PRN; Protocol PRN Reason: Nausea And Vomiting Ondansetron HCl (Zofran) 4 mg IV Q4-6HP PRN; Protocol PRN Reason: Nausea And Vomiting Polyethylene Glycol (Miralax) 17 gm PO DAILYP PRN PRN Reason: Constipation Potassium Chloride (Klor-Con) 40 meq PO DAILYP PRN PRN Reason: K+ < 3.5 Senna/Docusate Sodium (Senna Plus Tablet) 1 tab PO HS [facility] Last Admin: 07/04/19 20:59 Dose: Not Given Documented by: Sodium Chloride (Saline Flush) 10 ml IV Q8 [facility] Last Admin: 07/05/19 05:38 Dose: Not Given Documented by: Thiamine HCl (Vitamin B1) 100 mg PO DAILY [facility] Medical - PN: A/P - Time Spent With Patient Total time spent is greater than 50% in coordination of care (as documented) at patient's floor/unit and/or counseling patient: 25 - 35 minutes (1) Acute cerebrovascular accident (CVA) Status: Acute Assessment and plan: * Acute change in mental status with aphasia/right-sided weakness likely TIA as no evidence of acute infarct on MRI brain. Negative CT angiogram head neck. History of A. fib on anticoagulation. Await echo with bubble study. Continue anticoagulation on Coumadin/aspirin 81 as per stroke neurologist Dr. Hale's recommendations. * Atrial fibrillation rate controlled. * Anticoagulation on Coumadin. INR 1.9 * Full code Plan * Delirium watch * Avoid sedative-hypnotics * Bright lights/frequent reorientation and family support * PT OT * Coumadin/aspirin as per neurology * Discharge planning Current Visit: Yes Medical - PN: Qual - Stroke Symptom Onset Unknown: Yes - VTE Deep Vein Thrombosis/Pulmonary Embolism Present on Admission: No
[2019-07-05] MEDS: niCARdipine 25 MG in 0.9 % SODIUM CHLORIDE 240 ML IV SCH (09:55)
[2019-07-05] MEDS: DOCUSATE SODIUM 100 MG CAPSULE PO SCH ×2 (09:56→19:55)
[2019-07-05] MEDS: CYANOCOBALAMIN (VITAMIN B-12) 500 MCG TABLET PO SCH ×2 (09:56→19:55)
[2019-07-05] MEDS: 0.9 % SODIUM CHLORIDE 1,000 ML IV SCH ×2 (09:56→12:04)
[2019-07-05 11:02] LABS: INR 1.6 (0.9-1.1); Prothrombin Time 19.2 sec (11.9-14.5)
[2019-07-05] MEDS: HEPARIN 5,000 UNIT/ML VIAL SQ SCH ×2 (12:07→19:55)
[2019-07-05] MEDS ORDERED: WARFARIN 5 MG TABLET PO ONE (14:00)
[2019-07-05] MEDS: SENNOSIDES/DOCUSATE SODIUM 1 TAB TABLET PO SCH (19:55)
[2019-07-05] MEDS ORDERED: BISACODYL 10 MG SUPP.RECT PR PRN (23:29)
[2019-07-05] MEDS ORDERED: ONDANSETRON 4 MG/2 ML VIAL IV PRN (23:29)
[2019-07-05] MEDS ORDERED: MELATONIN 3 MG TABLET PO PRN (23:29)
[2019-07-05] MEDS ORDERED: ACETAMINOPHEN 650 MG/65 ML BOTTLE IV PRN (23:29)
[2019-07-05] MEDS ORDERED: ONDANSETRON 4 MG ODT TABLET SL PRN (23:29)
[2019-07-05] MEDS ORDERED: POLYETHYLENE GLYCOL 3350 17 GM PACKET PO PRN (23:29)
[2019-07-05] MEDS ORDERED: POTASSIUM CHLORIDE 20 MEQ PACKET PO PRN (23:29)
[2019-07-05] MEDS ORDERED: ACETAMINOPHEN 325 MG TABLET PO PRN (23:29)
[2019-07-05] MEDS ORDERED: OLANZapine 10 MG VIAL IM PRN (23:29)
[2019-07-05] MEDS ORDERED: MAGNESIUM SULFATE 2 GM/50 ML BAG IV PRN (23:29)
[2019-07-06] MEDS: 0.9 % SODIUM CHLORIDE 1,000 ML IV SCH (00:20)
[2019-07-06 06:14] LABS: Hematocrit 33.4 % (41.0-55.0); Hemoglobin 11.2 g/dL (13.5-16.5); Mean Cell Volume 91.2 fL (80.0-100.0); Mean Corpuscular HGB Conc 33.4 g/dL (31.0-36.0); Mean Platelet Volume 9.7 fL (7.4-10.4); Platelet Count 116 K/mcL (140-440); RBC 3.66 M/mcL (4.50-5.90); Red Cell Distribution Width 15.3 % (11.5-14.5); WBC 4.2 K/mcL (4.5-11.0)
--- NOTE | 2019-07-06 06:18 | Cat Scan Report ---
CLINICAL INFORMATION: Right arm weakness. Facial droop. COMPARISON: Previous CT scans dated 03/09/2019 and 07/04/2019. This limited MRI scan dated 07/04/2019 TECHNIQUE: Axial noncontrast-enhanced images through the brain. Sagittally and coronally reformatted images. FINDINGS: No acute intracranial hemorrhage. No intra-axial hematoma. Again demonstrated is encephalomalacia and chronic infarction in the posterior right parietal lobe and occipital lobe, and left cerebellar hemisphere. Findings are unchanged. No new intra-axial attenuation abnormality. No localized mass effect. No midline shift. There is cerebral atrophy. No extra-axial, intracranial abnormality. No subdural or subarachnoid hemorrhage. No calvarial lesion. No lytic lesion. No fracture Examination was initially interpreted by [facility] IMPRESSION: 1. 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 No acute abnormality The exam was performed using radiation dose optimization techniques including, but not limited to, automated exposure control, adjustment of the mA and/or kV according to patient size and use of iterative reconstruction technique. Interpreted and Authenticated by: Ulises Mike 07/06/19
[2019-07-06] MEDS: 0.9 % SODIUM CHLORIDE 10 ML SYRINGE IV SCH ×3 (06:20→21:45)
[2019-07-06 06:39] LABS: INR 1.8 (0.9-1.1); Prothrombin Time 20.7 sec (11.9-14.5)
[2019-07-06 06:40] LABS: ALT/SGPT 13 U/l (0-40); AST/SGOT 20 U/l (0-37); Albumin/Globulin Ratio 1.4 (1.0-2.3); Alkaline Phosphatase 56 U/L (39-117); Bilirubin,Direct 0.2 mg/dL (0.0-0.3); Bilirubin,Total 0.8 mg/dL (0.0-1.0); Blood Urea Nitrogen 21 mg/dl (8-23); Carbon Dioxide 23 mmol/L (22-30); Chloride 107 mmol/L (96-108); Globulin 2.9 gm/dL (2.2-3.7); Glomerular Filtration Rate 50; Glucose 109 mg/dL (70-105); Lactate Dehydrogenase 223 U/L (94-250); Phosphorous 3.2 mg/dL (2.7-4.5); Triglycerides 67 mg/dl (<150); Uric Acid 5.3 mg/dL (2.5-8.0)
[2019-07-06 06:52] LABS: Lymphocytes % 12 % (15-49); Monocytes % (Manual) 10 % (1-12); Platelet Estimate DECREASED (NORMAL); RBC Morphology NORMAL (NORMAL); Segmented Neutrophils % 78 % (38-78)
--- NOTE | 2019-07-06 09:42 | XRay Report ---
CLINICAL INFORMATION: Left hip pain TECHNIQUE: AP pelvis. AP and lateral left hip COMPARISON: Previous examination dated 05/31/2009 FINDINGS: Previous bilateral total hip arthroplasty. No acute fracture or dislocation. No evidence for loosening or infection. Pelvis is negative. No fracture. Sacrum is negative. There is degenerative disc disease in lower lumbar spine. IMPRESSION: 1. Bilateral total hip arthroplasty 2. No acute abnormality Interpreted and Authenticated by: Ulises Mike 07/06/19
--- NOTE | 2019-07-06 11:45 | Internal Med Progress Note ---
Medical - PN: Subj Patient information: Note initiated : 07/06/19 at 11:42 am Service Date, if different from initiated Date: [] Patient: Luis Alfredo Contreras 83 y/o M admitted on 07/04/19 for Altered LOC. Chief Complaint: [] Interval history: Mr. Contreras is a 83 year old right-handed M who presents to the ER after he was found by his family this morning confused unable to express himself and wobbly. Despite concerning symptoms patient refused to go to the ER however he fell between his bed and the dresser wedged in but fortunate enough not to sustain significant injuries. He was thereafter brought to the ER and code stroke was initiated. Dr. Hale neurologist was consulted after CT angiogram head neck/CT head was performed. Initial NIH score 7. Stroke neurologist recommended continuing Coumadin/aspirin. Patient is sub- therapeutic at 1.9. He denies associated vision loss/seizure but endorses to headache that started this morning throbbing in nature. He denies tearing neck pain or chest palpitation or shortness of breath. He is recovering from a recent URI. He denies changes in medications or taking NSAIDs Following initial treatment hospitalist service consulted for evaluation and admission At the time evaluation patient is accompanied with his daughter and . He is able to answer some of the questions. Most of history was obtained from review of medical records/ER physician and patient's . He endorses to history as above. He denies chest pain, fever, diarrhea, dysuria, weight loss. On his normal baseline he is fairly functional driving and able to fix meals and lives with his fairly independently. He has not had prior stroke or cardiac surgeries. 07/05-MRI no evidence of acute stroke. Patient however remains confused and delirious exacerbated after administration of benzodiazepine during MRI. Currently on Zyprexa. Continue bright lights/avoid sedative-hypnotics. Overnight urinary retention requiring Orr's catheter. Blood-tinged urine note d this morning. at bedside. No telemetry events. Atrial fibrillation. INR 1.9. Stable hemodynamics. Anticipate discharge in 24 hours 07/06- Mental status improved, we will hold off any benzodiazepines and will hold off any IV Zyprexa ordered PT OT evaluation and if he continues to improve plan to discharge him. Discussed with the family. No unremarkable telemetry. His vital signs within normal limits. He probably has a TIA which was worsened by lorazepam given for the MRI Pertinent ROS: Review of systems General-improving no distress Respiratory-no shortness of breath no cough Cardiac-no chest pain no palpitation Abdomen-no diarrhea no constipation Neuro-weakness improved but still weak on his arms, aphasia improved Psych-no anxiety no agitation today - Constitutional Vitals: Vital Signs Temp Pulse Resp BP Pulse Ox 97.8 F 79 12 171/82 99 07/06/19 07:35 07/06/19 07:35 07/06/19 07:35 07/06/19 07:35 07/06/19 07:35 Period Temp Pulse Resp BP Sys/[place]eno Pulse Ox Last 24 Hr 97.3 F-99.6 F 72-90 12-23 131-215/59-166 93-100 Intake and Output 07/05/19 07/06/19 07/06/19 21:59 05:59 13:59 Intake Total 65 611 Output Total 105 425 Balance -40 186 Weight 147 lb Intake & Output: Intake & Output 07/05/19 07/06/19 07/06/19 21:59 05:59 13:59 Intake Total 65 611 Output Total 105 425 Balance -40 186 Weight 147 lb Intake: IV 65 611 Sodium Chloride 0.9% 1,000 ml @ 611 50 mls/hr IV .Q20H [facility] Rx#: [id number] Output: Urine Catheter Amount 105 275 Void Amount 150 Other: Meal Dinner Percent of Meal Consumed 50% 100% Feeding Ability Total Assistance Assist with Tray Set Up Urine Appearance Hematuria Hematuria Uretheral (Orr) Hematuria Hematuria Urine Color Bright Yellow Blood Tinged Uretheral (Orr) Red Brown Red Brown Urine Odor Normal Uretheral (Orr) Normal Normal - Head Head exam: Present: normal inspection - Eye Eye exam: Present: PERRL. Absent: nystagmus, periorbital swelling - ENT ENT exam: Present: mucous membranes dry, normal exam, normal oropharynx - Neck Neck exam: Present: normal inspection. Absent: lymphadenopathy, meningismus - Respiratory Respiratory exam: Present: decreased breath sounds, rales - Cardiovascular Cardiovascular exam: Present: irregular rhythm. Absent: bradycardia, clicks, diastolic murmur, +S3 - GI/Abdominal GI/Abdominal exam: Present: soft, distended - Neurological Exam Neurological exam: Present: alert, motor sensory deficit (Continued having weakness right side, more oriented aphasia improved according to the ), oriented X3 Medical - PN: Obj Da - Labs CBC & Chem 7: 07/06/19 04:10 07/06/19 04:10 Labs: Abnormal Lab Results 07/06/19 07/06/19 07/06/19 04:10 04:10 04:10 WBC 4.2 L RBC 3.66 L Hgb 11.2 L Hct 33.4 L RDW 15.3 H Plt Count 116 L Gran % Lymph % (Auto) Lymph # (Auto) Lymphocytes % 12 L Monocytes % (Manual) Platelet Estimate Decreased A POC PT PT 20.7 H POC INR INR 1.8 H APTT Carbon Dioxide POC BUN BUN Creatinine 1.3 H POC Creatinine Glucose 109 H POC Glucose Ammonia Urine Protein Urine Ketones Urine Occult Blood Ur Leukocyte Esterase Urine RBC Urine WBC Hyaline Casts 07/05/19 07/05/19 07/05/19 10:30 03:50 03:50 WBC RBC 3.79 L Hgb 11.5 L Hct 34.7 L RDW 14.9 H Plt Count 116 L Gran % Lymph % (Auto) Lymph # (Auto) Lymphocytes % 9 L Monocytes % (Manual) 14 H Platelet Estimate Decreased A POC PT PT 19.2 H POC INR INR 1.6 H APTT Carbon Dioxide 21 L POC BUN BUN Creatinine 1.3 H POC Creatinine Glucose POC Glucose Ammonia Urine Protein Urine Ketones Urine Occult Blood Ur Leukocyte Esterase Urine RBC Urine WBC Hyaline Casts 07/04/19 07/04/19 07/04/19 11:46 09:36 08:40 WBC RBC Hgb Hct RDW Plt Count Gran % Lymph % (Auto) Lymph # (Auto) Lymphocytes % Monocytes % (Manual) Platelet Estimate POC PT PT POC INR INR APTT Carbon Dioxide 21 L POC BUN BUN 24 H Creatinine 1.3 H POC Creatinine Glucose POC Glucose Ammonia 10 L Urine Protein 100 A Urine Ketones 5/tr A Urine Occult Blood 0.03 A Ur Leukocyte Esterase 25 A Urine RBC 7 H Urine WBC 19 H Hyaline Casts 6 H 07/04/19 07/04/19 07/04/19 08:14 08:14 08:14 WBC RBC Hgb Hct 40.9 L RDW 15.2 H Plt Count 139 L Gran % 80.5 H Lymph % (Auto) 12.5 L Lymph # (Auto) 0.7 L Lymphocytes % Monocytes % (Manual) Platelet Estimate POC PT 21.7 H PT POC INR 1.9 H INR APTT 42 H Carbon Dioxide POC BUN 33 H BUN Creatinine POC Creatinine 1.4 H Glucose POC Glucose 125 H Ammonia Urine Protein Urine Ketones Urine Occult Blood Ur Leukocyte Esterase Urine RBC Urine WBC Hyaline Casts Meds: Medications Acetaminophen (Tylenol) 650 mg PO Q4-6HP PRN; Protocol PRN Reason: Per Pain Protocol/Fever > 101 Last Admin: 07/06/19 08:44 Dose: 650 mg Documented by: Bisacodyl (Dulcolax) [address] Q2-3DAYS PRN PRN Reason: Constipation Cyanocobalamin (Vitamin B-12) 1,000 mcg PO BID [facility] Stop: 07/09/19 09:01 Docusate Sodium (Colace) 100 mg PO BID [facility] Folic Acid (Folic Acid) 1 mg PO DAILY [facility] Heparin Sodium (Porcine) (Heparin) 5,000 unit SQ Q12 [facility] Magnesium Sulfate (Magnesium Sulfate) 2 gm in 50 mls @ 50 mls/hr IV UD PRN PRN Reason: MG = or < 1.7 Sodium Chloride (Sodium Chloride 0.9%) 1,000 mls @ 50 mls/hr IV .Q20H [facility] Stop: 07/07/19 00:56 Last Admin: 07/06/19 00:20 Dose: 50 mls/hr Documented by: Acetaminophen (Ofirmev) 650 mg in 65 mls @ 130 mls/hr IV Q6HP PRN; Protocol PRN Reason: Per Pain Protocol/Fever > 101 Iron Carb/Multivit/[place]/Folic Acid (Multivitamin W/Minerals) 1 tab PO DAILY [facility] Melatonin (Melatonin 3mg Tablet) 3 mg PO HSP PRN PRN Reason: Insomnia Olanzapine (Zyprexa) 5 mg IM Q4HP PRN PRN Reason: Agitation Ondansetron HCl (Zofran Odt) 4 mg SL Q4-6HP PRN; Protocol PRN Reason: Nausea And Vomiting Ondansetron HCl (Zofran) 4 mg IV Q4-6HP PRN; Protocol PRN Reason: Nausea And Vomiting Polyethylene Glycol (Miralax) 17 gm PO DAILYP PRN PRN Reason: Constipation Potassium Chloride (Klor-Con) 40 meq PO DAILYP PRN PRN Reason: K+ < 3.5 Senna/Docusate Sodium (Senna Plus Tablet) 1 tab PO HS [facility] Sodium Chloride (Saline Flush) 10 ml IV Q8 [facility] Last Admin: 07/06/19 06:20 Dose: Not Given Documented by: Thiamine HCl (Vitamin B1) 100 mg PO DAILY [facility] Warfarin Sodium (Coumadin Per Pharmacy) 1 order PO UD [facility] Medical - PN: A/P - Time Spent With Patient Total time spent is greater than 50% in coordination of care (as documented) at patient's floor/unit and/or counseling patient: - Narrative A/P Narrative: Acute encephalopathy and delirium Probable underlying TIA if unimproved Patient presented with a TIA-like symptoms and MRI was negative But he went into delirium and encephalopathy probably due to the lorazepam given before the MRI Negative CT angiogram History of atrial fibrillation on anticoagulation Pending echocardiogram results Continue anticoagulation with Coumadin and aspirin as per the stroke neurologist Atrial fibrillation -Rate controlled Continue anticoagulation with Coumadin and INR is therapeutic Aspirin continued according to the neurologist Probable TIA Continue Coumadin and aspirin Neurology was consulted by Dr. Muro Outpatient neurology follow-up PT OT evaluation discharge planning CODE STATUS-full code DVT prophylaxis on Coumadin Expected length of stay-1 midnight Medical - PN: Qual - Stroke Symptom Onset Unknown: Yes - VTE Deep Vein Thrombosis/Pulmonary Embolism Present on Admission: No
[2019-07-06] MEDS: FOLIC ACID 1 MG TABLET PO SCH (12:45)
[2019-07-06] MEDS: MULTIVIT,THER IRON,CA,FA & MIN 1 TABLET PO SCH (12:45)
[2019-07-06] MEDS: CYANOCOBALAMIN (VITAMIN B-12) 500 MCG TABLET PO SCH ×2 (12:45→21:42)
[2019-07-06] MEDS: THIAMINE 100 MG TABLET PO SCH (12:45)
[2019-07-06] MEDS: HEPARIN 5,000 UNIT/ML VIAL SQ SCH ×2 (12:46→21:44)
[2019-07-06] MEDS: DOCUSATE SODIUM 100 MG CAPSULE PO SCH ×2 (12:49→21:43)
[2019-07-06] MEDS ORDERED: WARFARIN 5 MG TABLET PO ONE (14:00)
[2019-07-06] MEDS ORDERED: SENNOSIDES/DOCUSATE SODIUM 1 TAB TABLET PO SCH (21:00)
[2019-07-07] MEDS: 0.9 % SODIUM CHLORIDE 10 ML SYRINGE IV SCH ×2 (04:18→16:54)
[2019-07-07] MEDS: 0.9 % SODIUM CHLORIDE 1,000 ML IV SCH (08:00)
[2019-07-07 09:44] LABS: ALT/SGPT 12 U/l (0-40); AST/SGOT 18 U/l (0-37); Albumin 3.6 gm/dL (3.2-5.2); Albumin/Globulin Ratio 1.3 (1.0-2.3); Alkaline Phosphatase 50 U/L (39-117); Bilirubin,Direct < 0.2 mg/dL (0.0-0.3); Bilirubin,Total 0.5 mg/dL (0.0-1.0); Blood Urea Nitrogen 19 mg/dl (8-23); Calcium 8.7 mg/dl (8.6-10.4); Carbon Dioxide 24 mmol/L (22-30); Chloride 110 mmol/L (96-108); Globulin 2.7 gm/dL (2.2-3.7); Glomerular Filtration Rate 55; Glucose 95 mg/dL (70-105); Lactate Dehydrogenase 190 U/L (94-250); Phosphorous 2.8 mg/dL (2.7-4.5); Triglycerides 87 mg/dl (<150); Uric Acid 5.4 mg/dL (2.5-8.0)
[2019-07-07 10:21] LABS: Hematocrit 30.2 % (41.0-55.0); Hemoglobin 10.1 g/dL (13.5-16.5); Mean Cell Volume 90.8 fL (80.0-100.0); Mean Corpuscular HGB Conc 33.3 g/dL (31.0-36.0); Mean Platelet Volume 9.7 fL (7.4-10.4); Platelet Count 120 K/mcL (140-440); RBC 3.33 M/mcL (4.50-5.90); Red Cell Distribution Width 15.4 % (11.5-14.5); WBC 3.4 K/mcL (4.5-11.0)
[2019-07-07 10:30] LABS: INR 2.6 (0.9-1.1); Prothrombin Time 27.5 sec (11.9-14.5)
[2019-07-07] MEDS: CYANOCOBALAMIN (VITAMIN B-12) 500 MCG TABLET PO SCH (11:02)
[2019-07-07] MEDS: MULTIVIT,THER IRON,CA,FA & MIN 1 TABLET PO SCH (11:03)
[2019-07-07] MEDS: FOLIC ACID 1 MG TABLET PO SCH (11:03)
[2019-07-07] MEDS: DOCUSATE SODIUM 100 MG CAPSULE PO SCH (11:04)
[2019-07-07] MEDS: HEPARIN 5,000 UNIT/ML VIAL SQ SCH (11:04)
[2019-07-07] MEDS: THIAMINE 100 MG TABLET PO SCH (11:04)
[2019-07-07 11:18] LABS: Eosinophils % (Manual) 1 % (0-7); Hypochromasia FEW (NONE SEEN); Lymphocytes % 20 % (15-49); Monocytes % (Manual) 15 % (1-12); Platelet Estimate DECREASED (NORMAL); RBC Morphology ABNORM (NORMAL); Segmented Neutrophils % 64 % (38-78)
[2019-07-07] MEDS ORDERED: METHOTREXATE SODIUM 2.5 MG TABLET PO SCH (12:00)
[2019-07-07] MEDS ORDERED: WARFARIN 2 MG TABLET PO ONE (14:00)
--- NOTE | 2019-07-07 15:22 | Discharge Summary ---
Medical - DS: Prov Patient information: Note initiated : 07/07/19 at 3:20 pm Service Date, if different from initiated Date: [] Patient: Luis Alfredo Contreras 83 y/o M admitted on 07/04/19 for Altered LOC. Chief Complaint: [] Date of admission: 07/04/19 12:43 Discharge date: 07/07/19 Primary care physician: Marino Smith M.D., F.A.A.F.P. Consults: 07/04/19 Consult to Physician [CONS] Stat Comment: Consulting Provider: Harris Muro Reason For Exam: Physician to Consult Medical - DS: Meds - Discharge Medications Prescriptions: Polyethylene Glycol 3350 [Miralax] 17 gm PO DAILYP PRN #30 packet PRN Reason: Constipation Transmission Status: Received by [facility] Active and Home Medications: Home Medications methotrexate sodium 7.5 mg tablet 5 mg PO QWEEK tab 04/02/19 [History Confirmed 07/04/19 Last Taken Unknown] warfarin 5 mg tablet See Rx Instructions PO .COMPLEX 04/02/19 [History Confirmed 07/04/19 Last Taken Unknown] Polyethylene Glycol 3350 [Miralax] 17 gm PO DAILYP PRN #30 packet 07/07/19 [Rx Last Taken Unknown] Medical - DS: Hosp Hospital Course: Mr. Contreras is a 83 year old right-handed M who presents to the ER after he was found by his family this morning confused unable to express himself and wobbly. Despite concerning symptoms patient refused to go to the ER however he fell between his bed and the dresser wedged in but fortunate enough not to sustain significant injuries. He was thereafter brought to the ER and code stroke was initiated. Dr. Hale neurologist was consulted after CT angiogram head neck/CT head was performed. Initial NIH score 7. Stroke neurologist recommended continuing Coumadin/aspirin. Patient is sub- therapeutic at 1.9. He denies associated vision loss/seizure but endorses to headache that started this morning throbbing in nature. He denies tearing neck pain or chest palpitation or shortness of breath. He is recovering from a recent URI. He denies changes in medications or taking NSAIDs Following initial treatment hospitalist service consulted for evaluation and admission At the time evaluation patient is accompanied with his daughter and . He is able to answer some of the questions. Most of history was obtained from review of medical records/ER physician and patient's . He endorses to history as above. He denies chest pain, fever, diarrhea, dysuria, weight loss. On his normal baseline he is fairly functional driving and able to fix meals and lives with his fairly independently. He has not had prior stroke or cardiac surgeries. 07/05-MRI no evidence of acute stroke. Patient however remains confused and delirious exacerbated after administration of benzodiazepine during MRI. Currently on Zyprexa. Continue bright lights/avoid sedative-hypnotics. Overnight urinary retention requiring Orr's catheter. Blood-tinged urine noted this morning. at bedside. No telemetry events. Atrial fibrillation. INR 1.9. Stable hemodynamics. Anticipate discharge in 24 hours 07/06- Mental status improved, we will hold off any benzodiazepines and will hold off any IV Zyprexa ordered PT OT evaluation and if he continues to improve plan to discharge him. Discussed with the family. No unremarkable telemetry. His vital signs within normal limits. He probably has a TIA which was worsened by lorazepam given for the MRI Patient had a traumatic hematuria while he was in delirium he pulled the Orr catheter and had a traumatic hematuria which improved and we did a bladder irrigation today and he has clean urine since then Patient is already on Coumadin and started aspirin as recommended by the stroke neurologist. Patient was evaluated by physical therapy and Occupational Therapy recommended rehab and patient will be discharged to rehab facility today. Acute encephalopathy and delirium Probable underlying TIA if unimproved Patient presented with a TIA-like symptoms and MRI was negative But he went into delirium and encephalopathy probably due to the lorazepam given before the MRI Negative CT angiogram History of atrial fibrillation on anticoagulation Echocardiogram no acute findings continue anticoagulation with Coumadin and aspirin as per the stroke neurologist Atrial fibrillation Rate controlled Continue anticoagulation with Coumadin and INR is therapeutic Aspirin continued according to the neurologist Probable TIA Continue Coumadin and aspirin Neurology was consulted by Dr. Muro Outpatient neurology follow-up PT OT evaluation and recommended rehab Discharge diagnosis: TIA, acute delirium - Time Spent with Patient Total time spent providing and/or coordinating discharge services: Greater than 30 minutes Medical - DS: Exam - Constitutional Vitals: Vital Signs Temp Pulse Resp BP Pulse Ox 07/07/19 12:00 98.5 F 62 18 135/73 100 07/07/19 08:00 97.7 F 84 18 129/82 96 07/07/19 04:00 97.7 F 66 18 158/71 97 07/06/19 23:43 98.9 F 72 18 178/79 98 07/06/19 18:48 98.6 F 83 18 163/69 97 07/06/19 15:37 97.8 F 80 16 125/70 98 Intake and Output 07/07/19 07/07/19 07/07/19 05:59 13:59 21:59 Intake Total 420 Output Total 500 395 Balance -500 25 Intake: Oral 420 Output: Urine Catheter Amount 500 395 Other: Meal Lunch Percent of Meal Consumed 100% Urine Appearance Clear Sediment Urine Color Dark Red Red Brown # Bowel Movements 1 - Head Head exam: Present: normal inspection - Eye Eye exam: Present: normal appearance. Absent: periorbital swelling, periorbital tenderness - ENT ENT exam: Present: mucous membranes moist, normal exam, normal oropharynx - Respiratory Respiratory exam: Present: normal respiratory exam. Absent: accessory muscle use, chest wall tenderness - Cardiovascular Cardiovascular exam: Present: normal rate and rhythm. Absent: bradycardia, clicks - GI/Abdominal GI/Abdominal exam: Present: soft. Absent: bruit, diminished bowel sounds, distended - Neurological Exam Neurological exam: Present: alert, motor sensory deficit, oriented X3, reflexes normal - Psychiatric Psychiatric exam: Present: normal affect, normal mood. Absent: agitated, anxious, depressed Medical - DS: Data Labs on day of discharge: Labs from last 24 hours 07/07/19 07/07/19 07/07/19 06:45 06:45 06:45 WBC 3.4 L RBC 3.33 L Hgb 10.1 L Hct 30.2 L MCV 90.8 MCH 30.2 MCHC 33.3 RDW 15.4 H Plt Count 120 L MPV 9.7 Total Counted 100 Seg Neutrophils % 64 Band Neutrophils % Not Reportable Lymphocytes % 20 Monocytes % (Manual) 15 H Eosinophils % (Manual) 1 Platelet Estimate Decreased A RBC Morphology Abnorm A Hypochromasia Few A PT 27.5 H INR 2.6 H Sodium 143 Potassium 3.7 Chloride 110 H Carbon Dioxide 24 Anion Gap 9.0 BUN 19 Creatinine 1.2 GFR Calculation 55 Glucose 95 Uric Acid 5.4 Calcium 8.7 Phosphorus 2.8 Magnesium 2.0 Total Bilirubin 0.5 Direct Bilirubin < 0.2 GGT 16 AST 18 ALT 12 Alkaline Phosphatase 50 Lactate Dehydrogenase 190 Total Protein 6.3 Albumin 3.6 Globulin 2.7 Albumin/Globulin Ratio 1.3 Triglycerides 87 Medical - DS: A/P - Patient/Caregiver Discharge Instructions Diet: Regular Diet Prescriptions: Polyethylene Glycol 3350 [Miralax] 17 gm PO DAILYP PRN #30 packet PRN Reason: Constipation Transmission Status: Received by [facility] - Follow up Plan Follow up with: Marino Smith MD, FAAFP [Primary Care Provider] - (please call and schedule a 7-14 day follow up with Primary Care Provider to fit your transportation needs. ) Disposition: [facility] Swing Bed Prognosis: Fair Rehab Potential: Fair I certify that the patient requires SNF services: Yes Overall status at discharge: patient is progressing back to baseline Medical - DS: Qual - VTE Deep Vein Thrombosis/Pulmonary Embolism Present on Admission: No
== END 2019-07-07 15:40 | disposition other institution (70) | DRG 69 ==
LOC: ED 07:58 → ICU 12:43 → MEDSUR 07-05 23:20
PROVIDERS: ADMIT Internal Medicine; ATTEND Internal Medicine